=== PATIENT | male | born 1930 | race Two or more races ===

== ENCOUNTER → 2017-07-11 | Outpatient (CLI) | payer MEDICARE ==
[~2017-07-11] MED LIST: CATHETER FLUSH 10 ML SYR IV PRN; HYDR1TAB PO; IOHEXOL 350 MG/ML 100 ML (OMNIPAQUE 350) VIAL IV ONE; NS 100 ML (IVPB) BAG IV ONE
--- NOTE | 2017-07-11 14:48 | Diagnostic Imaging Report ---
PROCEDURE: CT abdomen and pelvis with and without contrast. TECHNIQUE: Precontrast acquisitions were acquired through the abdomen and pelvis. Multiple contiguous axial images were obtained through the abdomen and pelvis after the administration of intravenous contrast. INDICATION: Left flank pain. There are no prior studies available for comparison. 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 The aneurysm originates just inferior to the renal arteries and extends to the bifurcation. The aneurysm measures approximately 6.0 x 6.4 cm in maximum transverse and AP diameters. Nearly two-third of the aneurysm lumen is occupied by thrombus. There is no periaortic fluid collection to suggest an acute abnormality. There are few gallstones within the gallbladder, but there is no evidence for acute cholecystitis. The liver, spleen, pancreas, adrenals, kidneys and inferior vena cava are unremarkable for an acute abnormality. There is a 1.7 cm benign-appearing cyst along the lateral aspect of the left kidney. The stomach is not well distended and difficult to assess. There is no pelvic mass or free fluid collection noted. The urinary bladder and prostate gland are grossly unremarkable. The appendix is visualized and is not abnormally thickened. The bone windows show no sign of a fracture or of a destructive lesion. The lung bases are clear. IMPRESSION: 1. 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 The aneurysm measures 6.0 x 6.4 cm in size. There is no acute abnormality of the aorta. 2. There is no acute abnormality of the abdomen or pelvis noted. 3. There is cholelithiasis without evidence for acute cholecystitis. 4. These results were called to Dr. Pyle. Dictated by: Dictated on workstation # [id number]
== END ==
LOC: RAD 12:07
PROVIDERS: ATTEND Family Medicine
DX: I71.4 Abdominal aortic aneurysm, without rupture (principal); K80.20 Calculus of gallbladder without cholecystitis without obstruction; R31.9 Hematuria, unspecified
CPT/HCPCS: 74178

== ENCOUNTER → 2017-08-15 | Outpatient (CLI) | payer MEDICARE ==
[~2017-08-15] MED LIST changes: -CATHETER FLUSH 10 ML SYR IV PRN; -IOHEXOL 350 MG/ML 100 ML (OMNIPAQUE 350) VIAL IV ONE; -NS 100 ML (IVPB) BAG IV ONE
[2017-08-15 08:12] LABS: ALBUMIN 3.7 GM/DL (3.2-4.5); CALCIUM 9.1 MG/DL (8.5-10.1); CREATININE SERUM 1.67 MG/DL (0.60-1.30); PHOSPHORUS 3.4 MG/DL (2.3-4.7); POTASSIUM 4.4 MMOL/L (3.6-5.0)
== END ==
LOC: RAD 07:39
PROVIDERS: ATTEND Nurse Practitioner
DX: Z53.9 Procedure and treatment not carried out, unspecified reason (principal); I10 Essential (primary) hypertension; F17.210 Nicotine dependence, cigarettes, uncomplicated; Z98.890 Other specified postprocedural states
CPT/HCPCS: 36415; 80069

== ENCOUNTER → 2017-08-17 | Outpatient (CLI) | payer MEDICARE ==
--- NOTE | 2017-08-17 13:19 | Diagnostic Imaging Report ---
PROCEDURE: CT abdomen and pelvis without contrast. TECHNIQUE: Multiple contiguous axial images were obtained through the abdomen and pelvis without the use of intravenous contrast. INDICATION: Followup aneurysm repair. COMPARISON: 07/11/2017 FINDINGS: Included portions of the lung bases are unremarkable. CT ABDOMEN: Since the previous exam, patient is now status post aortobiiliac stent graft repair. Evaluation for potential endoleak is suboptimal given lack of IV contrast, but the proximal and distal ends appear well opposed to the [place] vessels on this noncontrast exam. Aneurysm sac measures approximately 5.7 x 6.3 cm in maximal axial dimension. This is stable compared to 6.3 x 5.8 cm previously. There is cholelithiasis. Hypodense left renal cyst is noted. Otherwise, the kidneys, adrenal glands, spleen, pancreas, and liver have an unremarkable noncontrast CT appearance. Small bowel loops are nondistended. Normal appendix is identified. There is no loculated fluid collection, free fluid, nor free air within the abdomen. No abnormal mesenteric or retroperitoneal adenopathy is seen. Bony structures show no acute abnormalities. CT PELVIS: Urinary bladder is unopacified. No calculi are seen within the urinary bladder. There is no loculated fluid collection, free fluid, or free air within the pelvis. No abnormal lymph nodes are identified. Bony structures show no acute abnormalities. IMPRESSION: 1. Postsurgical changes of interval aortobiiliac stent graft repair. Again, evaluation for endoleak is suboptimal given noncontrast nature of the exam, but aneurysmal sac is stable in size. 2. Cholelithiasis. Dictated by: Dictated on workstation # [id number]
== END ==
LOC: RAD 11:31
PROVIDERS: ATTEND Thoracic Surgery (Cardiothoracic Vascular Surgery)
DX: Z09 Encounter for follow-up examination after completed treatment for conditions other than malignant neoplasm (principal); K80.20 Calculus of gallbladder without cholecystitis without obstruction; Z95.818 Presence of other cardiac implants and grafts; Z86.79 Personal history of other diseases of the circulatory system
CPT/HCPCS: 74176

== ENCOUNTER 2017-09-29 09:05 | Day surgery (SDC) | payer MEDICARE ==
[~2017-09-29] VITALS: Ht 170.2 cm; Wt 63.2 kg
[2017-09-29 09:30] VITALS: BP 158/89
[2017-09-29] MEDS ORDERED: CATHETER FLUSH 10 ML SYR IV PRN (09:45)
[2017-09-29] MEDS ORDERED: POTA10TA10 PO (09:49)
[2017-09-29] MEDS ORDERED: METO-387 PO (09:49)
[2017-09-29] MEDS ORDERED: ASPI-983 PO (09:49)
[2017-09-29] MEDS ORDERED: FURO20TA4 PO (09:49)
[2017-09-29 10:18] LABS: HEMOGLOBIN 9.6 G/DL (13.3-17.7); MEAN PLATELET VOLUME 9.9 FL (7.4-10.4); RED BLOOD COUNT 3.17 10^6/uL (4.35-5.85); RED CELL DISTRIBUTION WIDTH 14.5 % (10.0-14.5); WHITE BLOOD COUNT 7.5 10^3/uL (4.3-11.0)
--- NOTE | 2017-09-29 10:27 | Diagnostic Imaging Report ---
INDICATION: CHF. TIME OF EXAMINATION: 10:37 a.m. COMPARISON: Correlation is made with prior study from 09/26/2017. FINDINGS: The heart size is stable. There are bilateral interstitial infiltrates, similar to prior exam. No parenchymal consolidation is seen. There is trace pleural fluid. No pneumothorax is seen. IMPRESSION: Continued bilateral interstitial infiltrates and small effusions, similar to examination from three days earlier. Dictated by: Dictated on workstation # [id number]
[2017-09-29] MEDS ORDERED: FUROSEMIDE 40 MG/4 ML INJ (LASIX) IVP NR (10:30)
[2017-09-29 10:42] LABS: CREATININE SERUM 2.06 MG/DL (0.60-1.30); POTASSIUM 4.2 MMOL/L (3.6-5.0)
[2017-09-29 10:44] LABS: INR 1.1 (0.8-1.4); PROTHROMBIN TIME PATIENT 14.2 SEC (12.2-14.7)
[2017-09-29 11:13] VITALS: BP 146/83
[2017-09-29] MEDS: CATHETER FLUSH 10 ML SYR IV SCH ×2 (11:37→20:28)
--- NOTE | 2017-09-29 13:39 | Consultation-Cardiology ---
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 Barakat done in July 2017. Patient has been having increasing shortness of breath. Fatigue, dyspnea on exertion which has been worsening to the point that he is short of breath with minimal exertion. Referred to me to be seen earlier this week, I do the stress test which was abnormal. Patient was started on Lasix as an outpatient, has underlying renal insufficiency which appeared to be deteriorating. We instructed him to come to the hospital for admission. Upper my valuation was still dyspneic on exertion. No chest pain. No palpitation Home Medications & Allergies Allergies: Coded Allergies: NKANo Known Allergies (Unverified Allergy, Mild, 07/19/09) Home Medication List Reviewed: Yes [id number] Hx Patient Social History Marital Status: Employed/Student: retired Past Medical History Past medical history as discussed Family Medical History Family Medical Hx Noncontributory to his current condition Constitutional: see HPI, malaise, weakness EENTM: see HPI Respiratory: see HPI, cough, dyspnea on exertion; No hemoptysis; orthopnea; No phlegm; short of breath; No stridor, No wheezing, No other Cardiovascular: see HPI, edema Gastrointestinal: no symptoms reported, see HPI Genitourinary: no symptoms reported, see HPI Musculoskeletal: no symptoms reported, see HPI Skin: no symptoms reported, see HPI Psychiatric/Neurological: No Symptoms Reported, See HPI Reviewed Test Results Reviewed Test Results Lab Laboratory Tests Test 09/29/17 10:09 Range/Units White Blood Count 7.5 4.3-11.0 10^3/uL Red Blood Count 3.17 L 4.35-5.85 10^6/uL Hemoglobin 9.6 L 13.3-17.7 G/DL Hematocrit 29 L 40-54 % Mean Corpuscular Volume 93 80-99 FL Mean Corpuscular Hemoglobin 30 25-34 PG Mean Corpuscular Hemoglobin Concent 33 32-36 G/DL Red Cell Distribution Width 14.5 10.0-14.5 % Platelet Count 293 130-400 10^3/uL Mean Platelet Volume 9.9 7.4-10.4 FL Prothrombin Time 14.2 12.2-14.7 SEC INR Comment 1.1 0.8-1.4 Activated Partial Thromboplast Time 34 24-35 SEC Sodium Level 138 135-145 MMOL/L Potassium Level 4.2 3.6-5.0 MMOL/L Chloride Level 105 98-107 MMOL/L Carbon Dioxide Level 26 21-32 MMOL/L Anion Gap 7 5-14 MMOL/L Blood Urea Nitrogen 35 H 7-18 MG/DL Creatinine 2.06 H 0.60-1.30 MG/DL Estimat Glomerular Filtration Rate 31 BUN/Creatinine Ratio 17 Glucose Level 122 H 70-105 MG/DL Calcium Level 9.0 8.5-10.1 MG/DL B-Type Natriuretic Peptide 2755.5 H <100.0 PG/ML Physical Exam Vital Signs Vital Signs - First Documented 09/29/17 09:30 Temp 98.9 Pulse 82 Resp 20 B/P (MAP) 158/89 (112) Pulse Ox 97 O2 Delivery Room Air Capillary Refill : General Appearance: WD/WN, Mild Distress Eyes: Bilateral Eye Normal Inspection, Bilateral Eye PERRL, Bilateral Eye EOMI HEENT: PERRL/EOMI, TMs Normal, Normal ENT Inspection, Pharynx Normal Neck: Full Range of Motion, Normal Inspection, Non Tender, Supple, Carotid Bruit Respiratory: Normal Breath Sounds, No Accessory Muscle Use, No Respiratory Distress, Crackles, Decreased Breath Sounds Cardiovascular: Regular Rate, Rhythm, No Edema, No JVD, Normal Peripheral Pulses, Gallop/S3 Gastrointestinal: Normal Bowel Sounds, No Organomegaly, No Pulsatile Mass, Non Tender, Soft Back: Normal Inspection, No CVA Tenderness, No Vertebral Tenderness Extremity: Normal Capillary Refill, Normal Inspection, Normal Range of Motion, Non Tender, No Calf Tenderness, Pedal Edema Neurologic/Psychiatric: Alert, Oriented x3, No Motor/Sensory Deficits, Normal Mood/Affect Skin: Normal Color, Warm/Dry Lymphatic: No Adenopathy A/P-Cardiology Admission Diagnosis Congestive heart failure Coronary artery disease Abdominal aortic aneurysm Hypertension Hyperlipidemia Assessment/Plan Congestive heart failure, acute onset. Unknown etiology, probably ischemic, abnormal stress test with fixed defect involving the anterior wall apex and inferior wall, severe diffuse left ventricular hypokinesia. Patient is admitted and started on diuretics. I will monitor his response. Evaluate echocardiogram Questionable coronary artery disease, possible progression after his vascular surgery. Abnormal stress test as described above. Possible viability study Acute on chronic renal insufficiency, monitor renal function while on diuretics. Abdominal aortic aneurysm status post surgical repair with EVAR. Hyperlipidemia, lipid profile was done in September 27, 2017 showing total cholesterol 204, triglyceride 86, HDL 44, LDL 153. Tobaccoism, patient has stopped smoking after surgery in August 2017 MARTHA RICH MD Sep 29, 2017 13:39
[2017-09-29 14:22] LABS: BILIRUBIN,URINE NEGATIVE (NEGATIVE); CLARITY,URINE CLEAR; COLOR,URINE YELLOW; GLUCOSE, URINE (UA) NEGATIVE (NEGATIVE); KETONES,URINE NEGATIVE (NEGATIVE); LEUKOCYTE ESTERASE ,URINE NEGATIVE (NEGATIVE); NITRITE,URINE NEGATIVE (NEGATIVE); PH,URINE 7 (5-9); PROTEIN,URINE NEGATIVE (NEGATIVE); UROBILINOGEN,URINE NORMAL (NORMAL)
[2017-09-29 14:31] LABS: BACTERIA,URINE NEGATIVE /HPF; WBC,URINE 0-2 /HPF
[2017-09-29] MEDS: ENOXAPARIN 30 MG/0.3 ML (LOVENOX) SYR SC SCH (15:05)
[2017-09-29 16:12] VITALS: BP 133/80
[2017-09-29] MEDS ORDERED: FUROSEMIDE 40 MG/4 ML INJ (LASIX) IVP SCH (17:00)
[2017-09-29] MEDS ORDERED: PATIENT MAY USE OWN MEDS, ALL MC SCH (17:45)
--- NOTE | 2017-09-29 18:44 | History & Physicial ---
History of Present Illness History of Present Illness Reason for visit/HPI Shortness of breath getting worse. Patient came to my office complaining of shortness of breath. Patient states he has trouble walking. Patient had surgery for sciatica and aortic abdominal aneurysm greater than 6 cm. This was done by Dr. rosanna Medley July 08 patient had abnormal lab tests. Patient sent to management accountant. Patient failure to outpatient treatment. Patient admitted Date of Admission Sep 29, 2017 at 09:05 Time Seen by Provider: 12:50 I consulted on this patient on 09/29/17 18:39 Attending Physician Yusuf Huff DO Admitting Physician Yusuf Huff DO Consult Allergies and Home Medications Allergies Coded Allergies: NKANo Known Allergies (Unverified Allergy, Mild, 07/19/09) Home Medications Aspirin 81 Mg Tablet.dr, 81 MG PO DAILY, (Reported) Furosemide 20 Mg Tablet, 20 MG PO DAILY, (Reported) Metoprolol Succinate 25 Mg Tab.er.24h, 25 MG PO DAILY, (Reported) Potassium Chloride 10 Meq Tablet.er, 10 MEQ PO DAILY, (Reported) Patient Home Medication List Home Medication List Reviewed: Yes Past [id number] Hx Patient Social History Marrital Status: Employed/Student: retired Surgeries Abdominal Constitutional: malaise, weakness EENTM: no symptoms reported Respiratory: dyspnea on exertion, short of breath Cardiovascular: no symptoms reported Gastrointestinal: no symptoms reported Genitourinary: no symptoms reported Physical Exam Vital Signs Vital Signs - First Documented 09/29/17 09/29/17 09:27 09:30 Temp 98.9 Pulse 80 Resp 20 B/P (MAP) 158/89 (112) Pulse Ox 97 O2 Delivery Room Air Capillary Refill : General Appearance: Thin Eyes: Bilateral Eye Normal Inspection HEENT: Normal ENT Inspection Neck: Full Range of Motion, Normal Inspection Respiratory: No Accessory Muscle Use, No Respiratory Distress, Decreased Breath Sounds, Other (Rales) Cardiovascular: Regular Rate, Rhythm, No Murmur Gastrointestinal: Non Tender, Soft Assessment/Plan Assessment and Plan Short of breath. Congestive heart failure. Low ejection fraction. Hypertension. Hyperlipidemia. Coronary artery disease. History of abdominal aortic aneurysm in July 26 Admission Diagnosis Admission Status: Inpatient Order (span 2 midnights) Reason for Inpatient Admission: Short of breath Patient treatment failure. Ejection fraction low. Congestive heart failure. History of tobaccoism has stopped recently YUSUF HUFF DO Sep 29, 2017 18:44
[2017-09-29] MEDS: SACUBITRIL/VALSARTAN 24/26 MG (ENTRESTO) TABLET PO SCH (20:28)
[2017-09-29 20:30] VITALS: BP 117/66
[2017-09-29 23:53] VITALS: BP 131/73
[2017-09-30] VITALS (10 sets, daily range): BP systolic 91–133; BP diastolic 68–85
[2017-09-30 03:39] LABS: HEMOGLOBIN 10.6 G/DL (13.3-17.7); RED BLOOD COUNT 3.47 10^6/uL (4.35-5.85); RED CELL DISTRIBUTION WIDTH 14.3 % (10.0-14.5); WHITE BLOOD COUNT 8.3 10^3/uL (4.3-11.0)
[2017-09-30 04:21] LABS: ALBUMIN 3.1 GM/DL (3.2-4.5); BILIRUBIN,TOTAL 0.8 MG/DL (0.1-1.0); CALCIUM 8.6 MG/DL (8.5-10.1); CREATININE SERUM 2.39 MG/DL (0.60-1.30); POTASSIUM 3.7 MMOL/L (3.6-5.0); TOTAL PROTEIN 7.3 GM/DL (6.4-8.2)
[2017-09-30] MEDS: CATHETER FLUSH 10 ML SYR IV SCH ×2 (05:25→13:41)
[2017-09-30] MEDS ORDERED: NS IV 1000 ML 4,000 ML ONE (06:49)
[2017-09-30] MEDS ORDERED: NS IV 1000 ML 1,000 ML ONE (06:49)
--- NOTE | 2017-09-30 06:50 | Cardiac Procedure Note-CS/ASA ---
Pre-Procedure Note Pre-Op Procedure Note H&P Reviewed The H&P was reviewed, patient examined and no changes noted. Date H&P Reviewed: Sep 30, 2017 Time H&P Reviewed: 06:50 Conscious Sedation Pre-Proced Time Reviewed: 06:50 ASA Class: 3 Airway Mallampati Classification: (pala appropriate class) I. II. III, IV Lungs Heart ASA score ASA 1: a normal healthy patient ASA 2: a patient with a mild systemic disease (mid diabetes, controlled hypertension, obesity x ASA 3: a patient with a severe systemic disease that limits activity (angina , COPD, prior Myocardial infarction) ASA 4: a patient with an incapacitating disease that is a constant threat to life (CHF, renal failure) ASA 5: a moribund patient not expected to survive 24 hrs. (ruptured aneurysm) ASA 6: a declared brain patient whose organs are being harvested. For emergent operations, add the letter E after the classification Grade 3 Sedation Plan: Analgesia, Amnesia, Plan communicated to team members, Discussed options with patient/fam, Discussed risks with patient/fam Note The patient is an appropriate candidate to undergo the planned procedure, sedation, and anesthesia. The patient immediately re-assessed prior to indication. MARTHA RICH MD Sep 30, 2017 06:50
--- NOTE | 2017-09-30 06:50 | Cardiology Progress Note ---
Subjective Date Seen by Provider: Sep 30, 2017 Time Seen by Provider: 06:48 Subjective/Events-last exam Patient is laying down in bed, feeling better, breathing better, denied any chest pain at this time. Review of Systems General: No Chills, No Night Sweats; Fatigue, Malaise; No Appetite, No Other HEENT: No Head Aches, No Visual Changes, No Eye Pain, No Ear Pain, No Dysphasia , No Sinus Congestion, No Post Nasal Drip, No Sore Throat, No Other Pulmonary: Dyspnea; No Cough, No Pleuritic Chest Pain, No Other Cardiovascular: No: Chest Pain, Palpitations, Orthopnea, Paroxysmal Noc. Dyspnea, Edema, Lt Headedness, Other Objective-Cardiology Exam Last Set of Vital Signs Vital Signs 09/30/17 09/30/17 03:47 04:00 Temp 97.2 Pulse 78 Resp 18 B/P (MAP) 133/75 (94) Pulse Ox 91 O2 Delivery Room Air Capillary Refill : I&O Intake and Output 09/30/17 00:00 Intake Total 1000 ml Output Total 2700 ml Balance -1700 ml Intake Oral 1000 ml Output Urine Total 2700 ml Daily Weight Change No General: Alert, Oriented X3, Cooperative, Mild Distress HEENT: Atraumatic, PERRLA Neck: Supple, No JVD, No Thyromegaly Lungs: Normal Air Movement, Other (Bilateral rhonchi) Heart: Regular Rate, Normal S1, Normal S2, No Murmurs, Gallops Abdomen: Normal Bowel Sounds, Soft, No Tenderness, No Hepatosplenomegaly, No Masses Extremities: No Clubbing, No Cyanosis, No Edema, Normal Pulses, No Tenderness/ Swelling Skin: No Rashes, No Breakdown, No Significant Lesion Neuro: Normal Gait, Normal Speech, Strength at 5/5 X4 Ext, Normal Tone, Sensation Intact Psych/Mental Status: Mental Status NL, Mood NL Results Lab Laboratory Tests 09/29/17 10:09 09/30/17 03:20 A/P-Cardiology Admission Diagnosis Congestive heart failure Coronary artery disease Abdominal aortic aneurysm Hypertension Hyperlipidemia Assessment/Plan Congestive heart failure, acute onset. Unknown etiology, probably ischemic, abnormal stress test with fixed defect involving the anterior wall apex and inferior wall, severe diffuse left ventricular hypokinesia. Had elevation of troponin, probably due to underlying coronary artery disease. Planning for left heart catheterization today. Coronary artery disease, abnormal stress test, discussed his underlying renal insufficiency and the recent surgery, patient is considered at high risk for complication, all pros and cons were explained, I offered going to [place] having the procedure done in [place], presents for selected which he Acute on chronic renal insufficiency, worsening while on diuretics. Continue to monitor closely Abdominal aortic aneurysm status post surgical repair with EVAR. Hyperlipidemia, lipid profile was done in September 27, 2017 showing total cholesterol 204, triglyceride 86, HDL 44, LDL 153. Tobaccoism, patient has stopped smoking after surgery in August 2017 Clinical Quality Measures DVT/VTE Risk/Contraindication: Risk Factor Score Per Nursin RFS Level Per Nursing on Admit: 4+=Very High MARTHA RICH MD Sep 30, 2017 06:50
[2017-09-30] MEDS ORDERED: MIDAZOLAM 5 MG/5 ML (VERSED) VIAL ONE (06:53)
[2017-09-30] MEDS ORDERED: LIDOCAINE 1% INJ 20 ML 20 ML VIAL ONE (06:53)
[2017-09-30] MEDS ORDERED: fentaNYL INJECTION 100 MCG/2 ML AMP ONE (06:53)
[2017-09-30] MEDS ORDERED: HEParin 1000 UNIT/ML (10ML VIAL) FOR BOLUS ONE (06:53)
[2017-09-30] MEDS ORDERED: NS IV 1000 ML 1,000 ML IV SCH (07:00)
--- NOTE | 2017-09-30 07:48 | Progress Note (SOAP) ---
Subjective Time Seen by Provider: 07:45 Subjective/Events-last exam Patient's troponin elevated. BNP elevated. GFR 27. Patient catheter lab Objective Exam Vital Signs Date Time Temp Pulse Resp B/P (MAP) Pulse Ox O2 Delivery O2 Flow Rate FiO2 09/30/17 04:00 Room Air 09/30/17 03:47 97.2 78 18 133/75 (94) 91 Room Air 09/30/17 01:00 79 09/30/17 00:00 Room Air 09/29/17 23:53 97.3 76 18 131/73 (92) 92 Room Air 09/29/17 20:30 Room Air 09/29/17 20:30 97.8 83 20 117/66 (83) 95 Room Air 09/29/17 20:30 Room Air 09/29/17 19:00 78 09/29/17 16:12 99.1 78 20 133/80 (97) 93 Room Air 09/29/17 16:12 Room Air 09/29/17 13:00 81 09/29/17 11:13 98.5 76 16 146/83 (104) 93 Room Air 09/29/17 11:13 Room Air 09/29/17 09:30 98.9 82 20 158/89 (112) 97 Room Air 09/29/17 09:27 80 09/29/17 09:05 Room Air I & O 09/30/17 07:00 Intake Total 1000 ml Output Total 3700 ml Balance -2700 ml Capillary Refill : General Appearance: No Apparent Distress Results Lab Laboratory Tests 09/29/17 10:09 09/30/17 03:20 Laboratory Tests 09/29/17 10:09: White Blood Count 7.5, Red Blood Count 3.17L, Hemoglobin 9.6L, Hematocrit 29L, Mean Corpuscular Volume 93, Mean Corpuscular Hemoglobin 30, Mean Corpuscular Hemoglobin Concent 33, Red Cell Distribution Width 14.5, Platelet Count 293, Mean Platelet Volume 9.9, Prothrombin Time 14.2, INR Comment 1.1, Activated Partial Thromboplast Time 34, Sodium Level 138, Potassium Level 4.2, Chloride Level 105, Carbon Dioxide Level 26, Anion Gap 7, Blood Urea Nitrogen 35H, Creatinine 2.06H, Estimat Glomerular Filtration Rate 31, BUN/Creatinine Ratio 17 , Glucose Level 122H, Calcium Level 9.0, B-Type Natriuretic Peptide 2755.5H 09/29/17 14:15: Urine Color YELLOW, Urine Clarity CLEAR, Urine pH 7, Urine Specific [place] 1.010L, Urine Protein NEGATIVE, Urine Glucose (UA) NEGATIVE, Urine Ketones NEGATIVE, Urine Nitrite NEGATIVE, Urine Bilirubin NEGATIVE, Urine Urobilinogen NORMAL, Urine Leukocyte Esterase NEGATIVE, Urine RBC (Auto) NEGATIVE, Urine RBC NONE, Urine WBC 0-2, Urine Crystals NONE, Urine Bacteria NEGATIVE, Urine Casts NONE, Urine Mucus NEGATIVE, Urine Culture Indicated NO 09/30/17 03:20: White Blood Count 8.3, Red Blood Count 3.47L, Hemoglobin 10.6L, Hematocrit 32L, Mean Corpuscular Volume 91, Mean Corpuscular Hemoglobin 31, Mean Corpuscular Hemoglobin Concent 33, Red Cell Distribution Width 14.3, Platelet Count 280, Mean Platelet Volume 10.0, Sodium Level 138, Potassium Level 3.7, Chloride Level 100, Carbon Dioxide Level 24, Anion Gap 14, Blood Urea Nitrogen 49H, Creatinine 2.39H, Estimat Glomerular Filtration Rate 26, BUN/Creatinine Ratio 21 , Glucose Level 115H, Calcium Level 8.6, B-Type Natriuretic Peptide 3217.5H, Total Bilirubin 0.8, Aspartate Amino Transf (AST/SGOT) 14, Alanine Aminotransferase (ALT/SGPT) 9, Alkaline Phosphatase 72, Troponin I 1.27*H, Total Protein 7.3, Albumin 3.1L Assessment/Plan Assessment/Plan Assess & Plan/Chief Complaint Elevated troponin. Elevated BNP. 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 Congestive heart failure. Low ejection fraction. Hypertension. Hyperlipidemia. Coronary artery disease. History of abdominal aortic aneurysm in July 26 DVT/VTE Risk/Contraindication: Risk Factor Score Per Nursin RFS Level Per Nursing on Admit: 4+=Very High YUE HUFF DO Sep 30, 2017 7:48 am
[2017-09-30] MEDS ORDERED: SACU1TAB PO (07:50)
[2017-09-30] MEDS ORDERED: ATOR10TA PO (07:52)
--- NOTE | 2017-09-30 07:53 | Discharge Inst-Post CATH ---
Discharge Inst-CATH Post Cardiac Cath D/C Inst CARDIAC CATH DISCHARGE INSTRUCTIONS *Hold Metformin for 48 hours post heart cath. ACTIVITY * Go Home directly and rest. * Limit activity of the leg (or wrist if it was used) for 7 days including aerobics, swimming, jogging, bicycling, etc. * Restrict stair-climbing for 7 days if possible, if not, climb up with your non -cath leg, then bring together on the same step. * Avoid lifting, pushing, pulling or excessive movement of the affected extremity for 7 days. * Customary sexual activity may be resumed after 2 days-use caution not to use a position that strains or causes pain to the affected extremity. * No driving for 24 hours. * NO SMOKING. * Avoid straining for bowel movements for 7 days. * Gentle walking on level ground is allowed. * Returning to work will depend on the type of procedure and the results. Your doctor will discuss this with you. CALL YOUR DOCTOR FOR ANY OF THE FOLLOWING: *If bleeding from the puncture site occurs- Apply gentle pressure to site with clean cloth and call your doctor or EMS. * If a knot or lump forms under the skin, increases in size, or causes pain. * If bruising appears to be worsening or moving further down your leg instead of disappearing. * Temperature above 101 F. CARE OF YOUR GROIN INCISION; * Bruising or purple discoloration of the skin near the puncture site is common. * You may shower only, no bathtub bathing for 5 days. Be careful to avoid slipping as your leg may feel stiff. * If a closure device was used on your femoral artery, please see the attached guide regarding care of the device and your leg. * REMOVE the dressing from your groin the next day after your procedure in the shower. CARE OF YOUR WRIST INCISION; * Bruising or purple discoloration of the skin near the puncture site is common. * You may shower. * DO NOT submerge wrist. * Remove dressing in 24 hours. MARTHA RICH MD Sep 30, 2017 07:52
--- NOTE | 2017-09-30 08:00 | Cardiac Cath Report ---
Cardiac Cath Report Physician (s)/Lehr Stripper (s) Physician MARTHA RICH MD Pre-Procedure Diagnosis Pre-Procedure Diagnosis: coronary artery disease Post-Procedure Note Procedure Start Date: Sep 30, 2017 Name of Procedure: Coronary angiogram Findings/Procedure Note PROCEDURE NOTE: After explaining the procedure to the patient, all pros and cons were explained , all questions were answered. The patient signed the consent and then he was placed on the cardiac catheterization laboratory. Groin was prepped SL fashion local anesthesia was used. Sheath placed in the right femoral artery. Ap right and left catheter were used to access the coronary system, exchange was done using a long stork wire At the end of the procedure the sheath was removed. Closure device FINDINGS: ANATOMY: Left Main is free of obstructive disease Left Anterior Descending has severe stenosis/subtotal occlusion at the proximal portion involving the ostium of the diagonal artery Left Circumflex is dominant with mild disease Right Coronory Artery is nondominant with mild disease CONCLUSION: 1. Severe proximal LAD stenosis/subtotal occlusion involving the ostium of the diagonal branch 2. Otherwise mild coronary artery disease DISCUSSION AND RECOMMENDATION: Patient has underlying renal insufficiency, will need nephrology evaluation, it is considered high risk intervention. I am planning to transfer him to a tertiary care center for high risk intervention Anesthesia Type: Conscious Sedation Estimated blood loss (mL): 10 ml Contrast Amount: 16 ml Total Radiation Dose: 218 mGy Post-Procedure Diagnosis Post-operative diagnosis: Coronary artery disease Congestive heart failure Abdominal aortic aneurysm Hypertension Hyperlipidemia MARTHA RICH MD Sep 30, 2017 8:00 am
[2017-09-30] MEDS ORDERED: ASPIRIN E.C. 81 MG (ECOTRIN) TAB PO SCH ×2 (09:00)
[2017-09-30] MEDS ORDERED: FUROSEMIDE 40 MG/4 ML INJ (LASIX) IVP SCH (09:00)
[2017-09-30] MEDS: SACUBITRIL/VALSARTAN 24/26 MG (ENTRESTO) TABLET PO SCH (10:22)
--- NOTE | 2017-09-30 12:49 | Cardiology Discharge Summary ---
Diagnosis/Chief Complaint Date of Admission Sep 29, 2017 at 9:05 am Date of Discharge Admission Diagnosis Congestive heart failure Coronary artery disease Abdominal aortic aneurysm Hypertension Hyperlipidemia Discharge Diagnosis Congestive heart failure Coronary artery disease Hypertension Hyperlipidemia Abdominal aortic aneurysm Chief Complaint/HPI Chief Complaint/HPI Shortness of breath getting worse. Patient came to my office complaining of shortness of breath. Patient states he has trouble walking. Patient had surgery for sciatica and aortic abdominal aneurysm greater than 6 cm. This was done by Dr. rosanna Medley July 08 patient had abnormal lab tests. Patient sent to manual arts teacher. Patient failure to outpatient treatment. Patient admitted Discharge Summary Hospital Course Hospital Course Congestive heart failure, acute left ventricular systolic dysfunction, ischemic in nature. Better at this time on Lasix Coronary artery disease, abnormal stress test with fixed defect at the anterior wall, cardiac catheterization showed subtotal occlusion at the proximal LAD involving the ostium of the diagonal artery, still have flow in the LAD. Consider high risk for intervention without backup surgery. Arrangement for transfer to a tertiary care center was made. Acute on chronic renal insufficiency, worsening while on diuretics. Very limited amount of contrast was used today total of 16 milliliter. Continue to monitor renal function patient will be seen by dietician Abdominal aortic aneurysm status post surgical repair with EVAR. Hyperlipidemia, lipid profile was done in September 27, 2017 showing total cholesterol 204, triglyceride 86, HDL 44, LDL 153. Tobaccoism, patient has stopped smoking after surgery in August 2017 Labs Laboratory Tests 09/29/17 10:09: Red Blood Count 3.17L, Hemoglobin 9.6L, Hematocrit 29L, Blood Urea Nitrogen 35H , Creatinine 2.06H, Glucose Level 122H, B-Type Natriuretic Peptide 2755.5H 09/29/17 14:15: Urine Specific [place] 1.010L 09/30/17 03:20: Red Blood Count 3.47L, Hemoglobin 10.6L, Hematocrit 32L, Blood Urea Nitrogen 49H , Creatinine 2.39H, Glucose Level 115H, B-Type Natriuretic Peptide 3217.5H, Troponin I 1.27*H, Albumin 3.1L Procedures None. Discharge Physical Examination Allergies: Coded Allergies: NKANo Known Allergies (Unverified Allergy, Mild, 07/19/09) Vitals & I&Os Vital Signs Date Time Temp Pulse Resp B/P (MAP) Pulse Ox O2 Delivery O2 Flow Rate FiO2 09/30/17 10:00 80 16 116/77 (90) 98 Nasal Cannula 2.00 09/30/17 08:00 98.0 General Appearance: Alert, Oriented X3, Cooperative, No Acute Distress HEENT: Atraumatic, PERRLA Respiratory: Normal Air Movement, Other (Bilateral rhonchi) Cardiovascular: Regular Rate, Normal S1, Normal S2, No Murmurs Abdominal: Normal Bowel Sounds, Soft, No Tenderness, No Hepatosplenomegaly, No Masses Extremities: No Clubbing, No Cyanosis, No Edema, Normal Pulses, No Tenderness/ Swelling Skin: No Rashes, No Breakdown, No Significant Lesion Neuro: Normal Gait, Normal Speech, Strength at 5/5 X4 Ext, Normal Tone, Sensation Intact, Cranial Nerves 3-12 NL, Reflexes 2+ Psych/Mental Status: Mental Status NL, Mood NL Discharge Home Medications Reviewed and agree with Discharge Medication list on patient's Discharge Instruction sheet Instructions to Patient/Family Please see electronic discharge instructions given to patient. Clinical Quality Measures DVT/VTE Risk/Contraindication: Risk Factor Score Per Nursin RFS Level Per Nursing on Admit: 4+=Very High MARTHA RICH MD Sep 30, 2017 12:49 pm
[2017-09-30] MEDS: ENOXAPARIN 30 MG/0.3 ML (LOVENOX) SYR SC SCH (13:40)
== END 2017-09-30 18:28 | disposition short-term general hospital (02) ==
LOC: ICU 09:05 → UNDOADMOB 09:05 → CATH 09:05 → ICU 12:26 → EDSTATUS 13:14 → CATH 09-30 18:28 → UNDODISOB 09-30 18:28
PROVIDERS: ATTEND Family Medicine
DX: I50.21 Acute systolic (congestive) heart failure (principal); I25.10 Atherosclerotic heart disease of native coronary artery without angina pectoris; I71.4 Abdominal aortic aneurysm, without rupture; I13.0 Hypertensive heart and chronic kidney disease with heart failure and stage 1 through stage 4 chronic kidney disease, or unspecified chronic kidney disease; E78.5 Hyperlipidemia, unspecified; N18.9 Chronic kidney disease, unspecified; Z87.891 Personal history of nicotine dependence; Z79.899 Other long term (current) drug therapy
CPT/HCPCS: 36415; 71046; 80048; 80053; 81000; 83880; 84484; 85027; 85610; 85730; 93005; 93306; 93454; 99211

== ENCOUNTER → 2017-11-08 | Outpatient (CLI) | payer MEDICARE ==
[~2017-11-08] MED LIST changes: +ASPI-983 PO; +ATOR10TA PO; +FURO20TA4 PO; +METO-387 PO; +POTA10TA10 PO; +SACU1TAB PO
== END ==
LOC: CARD 08:25
PROVIDERS: ATTEND Internal Medicine Cardiovascular Disease
DX: I10 Essential (primary) hypertension (principal); R06.02 Shortness of breath; R07.89 Other chest pain; I71.4 Abdominal aortic aneurysm, without rupture; I08.3 Combined rheumatic disorders of mitral, aortic and tricuspid valves
CPT/HCPCS: 93306

== ENCOUNTER → 2018-02-07 | Outpatient (CLI) | payer MEDICARE ==
--- NOTE | 2018-02-07 13:14 | Diagnostic Imaging Report ---
PROCEDURE: CT abdomen and pelvis without contrast. TECHNIQUE: Multiple contiguous axial images were obtained through the abdomen and pelvis without the use of intravenous contrast. INDICATION: History of abdominal aortic aneurysm repair, smoker with hypertension. COMPARISON: Study compared to 08/17/2017. FINDINGS: Owing to renal dysfunction, this study is performed without IV contrast, similar to the previous. Infrarenal fusiform abdominal aortic aneurysm extends a length of 9.8 cm today, previously 9.0 cm. In axial plane, the aneurysmal sac is increased in size today measuring 7.3 x 6.4 cm, previously 6.3 x 5.7 cm. If the patient cannot tolerate IV contrast, Doppler ultrasound evaluation recommended as endoleak in the setting of enlarging aneurysm sac should be suspected. No perianeurysmal hemorrhage, fluid collection, or inflammatory process. No evidence for vessel rupture. Graft itself projects in stable orientation extending into the bilateral iliacs with no pelvic aneurysm. No intra or extraperitoneal hemorrhage. There are gallstones present with no bile duct dilatation. The gallbladder wall however is thickened, correlate clinically for features of acute cholecystitis. We note the gallbladder does not appear convincingly changed from the prior. Spleen, adrenals, and pancreas are unremarkable. The unobstructed kidneys are nonacute with some renal cortical cysts on the left, stable. IMPRESSION: 1. Increasing size of abdominal aortic aneurysmal sac. Stable orientation of the stent graft device. No evidence for rupture or acute fluid collection. Endoleak cannot be excluded and if iodinated contrast media is not tolerable, correlation with Doppler indicated. 2. Cholelithiasis and thickening of the gallbladder wall, similar to prior without bile duct dilatation. Dictated by: Dictated on workstation # [id number]
== END ==
LOC: RAD 11:19
PROVIDERS: ATTEND Nurse Practitioner
DX: I71.4 Abdominal aortic aneurysm, without rupture (principal); K80.20 Calculus of gallbladder without cholecystitis without obstruction; I10 Essential (primary) hypertension; F17.210 Nicotine dependence, cigarettes, uncomplicated; Z95.828 Presence of other vascular implants and grafts
CPT/HCPCS: 74176

== ENCOUNTER → 2018-06-05 | Outpatient (CLI) | payer MEDICARE ==
--- NOTE | 2018-06-06 21:25 | Diagnostic Imaging Report ---
EXAM: PET/CT INDICATION: Elevated serum immunoglobulin free light chains. TECHNIQUE: PET/CT imaging was obtained from the base of the skull through the pelvis after the administration of 11.94 mCi of F-[address] imaging was utilized for localization and attenuation correction purposes. The low energy CT utilized for attenuation correction is not considered to be of high enough spatial resolution to allow in and of itself a separate anatomical analysis. The extremities were also evaluated. COMPARISON: There are no prior PET/CT examinations available for comparison. FINDINGS: The CT abdomen / pelvis exam of 02/07/2018 failed to show any sign of a mass lesion. On this study, however, there now appears to be a 1.8 x 1.9 cm hypermetabolic mass within the lumen of the proximal descending colon. This mass has an SUV of 28.9 and should be considered neoplastic until proven otherwise. There is no other hypermetabolic activity to suggest the presence of neoplasm. There is a small focus of slightly increased activity in the ascending colon. This has a maximum SUV of 2.5 is more likely to be related to physiologic activity than to a neoplastic mass. The images of the extremities do show asymmetric uptake in the soft tissues adjacent to the left femoral neck. The maximum SUV in this area is 3.2. There is also increased activity adjacent to each greater trochanter. The maximum SUV in these areas is approximately 1.6. I suspect that these changes are more likely related to muscular activity and/or inflammation than to neoplasm. The previously study did show an aortic aneurysm with a stent graft in place. The aneurysm measured 7.3 x 6.4 cm. On this study, the aneurysm now measures 6.9 x 6.3 cm. The cholelithiasis seen on the previous study is again evident. There is still no evidence for acute cholecystitis. The intracranial contents, where visualized, are unremarkable. There is no abnormal uptake in the lower extremities. IMPRESSION: 1. There is a hypermetabolic intraluminal mass within the proximal descending colon. This finding should be considered neoplastic until proven otherwise. 2. There is no other hypermetabolic activity to suggest the presence of neoplasm. Dictated by: Dictated on workstation # [id number]
== END ==
LOC: RAD 08:33
PROVIDERS: ATTEND Internal Medicine Hematology & Oncology
DX: K63.89 Other specified diseases of intestine (principal); R76.8 Other specified abnormal immunological findings in serum

== ENCOUNTER 2018-06-29 10:22 | Outpatient (RCR) | payer MEDICARE | END 2018-08-29 | disposition home or self-care (01) | LOC: ONC 10:22 | PROVIDERS: ATTEND Internal Medicine Hematology & Oncology | DX: I12.9 Hypertensive chronic kidney disease with stage 1 through stage 4 chronic kidney disease, or unspecified chronic kidney disease (principal); N18.9 Chronic kidney disease, unspecified; Z87.891 Personal history of nicotine dependence; I71.4 Abdominal aortic aneurysm, without rupture; I25.10 Atherosclerotic heart disease of native coronary artery without angina pectoris; D89.0 Polyclonal hypergammaglobulinemia; Z79.82 Long term (current) use of aspirin; Z79.899 Other long term (current) drug therapy; Z95.5 Presence of coronary angioplasty implant and graft | CPT/HCPCS: 99213; 99214 ==

== ENCOUNTER → 2019-02-09 | Outpatient (CLI) | payer MEDICARE | LOC: CARD 08:21 | PROVIDERS: ATTEND Internal Medicine Cardiovascular Disease | DX: I08.1 Rheumatic disorders of both mitral and tricuspid valves (principal); I50.9 Heart failure, unspecified; I25.10 Atherosclerotic heart disease of native coronary artery without angina pectoris | CPT/HCPCS: 93306 ==

== ENCOUNTER → 2020-01-15 | Outpatient (CLI) | payer MEDICARE ==
[~2020-01-15] MED LIST changes: -METO-387 PO; +MTP25TSR PO; -SACU1TAB PO; +SACU1TAB2 PO
--- NOTE | 2020-01-15 14:49 | Diagnostic Imaging Report ---
PROCEDURE: CT abdomen and pelvis without contrast. TECHNIQUE: Multiple contiguous axial images were obtained through the abdomen and pelvis without the use of intravenous contrast. Auto Exposure Controls were utilized during the CT exam to meet ALARA standards for radiation dose reduction. INDICATION: Abdominal aortic aneurysm and chronic kidney disease stage IV. Correlation is made with prior CT from 02/07/2018. The lung bases are clear. The liver is unremarkable. Gallbladder contains small stones. No biliary duct dilatation is seen. Pancreas and spleen are unremarkable. No adrenal mass is detected. No definite renal calculi or hydronephrosis is seen. Infrarenal abdominal aortic aneurysm containing a stent graft is again noted. The stent appears to be more focally angulated than on prior exam with slight kinking present. Aneurysm sac dimension is 5.8 cm AP compared with 6.47 cm on prior. No perianeurysmal fluid collection is identified to suggest leakage or rupture. Bowel loops are of normal caliber. There is no free fluid or fluid collection. Bladder is unremarkable. IMPRESSION: 1. Cholelithiasis. 2. Abdominal aortic aneurysm with aortic stent graft. Aneurysm sac dimensions appears stable. There is slight change in the orientation of the stent graft with more angulation and kinking when compared with prior study from 02/07/2018. Dictated by: Dictated on workstation # [id number]
== END ==
LOC: RAD 13:57
PROVIDERS: ATTEND Nurse Practitioner
DX: N18.4 Chronic kidney disease, stage 4 (severe) (principal); I71.4 Abdominal aortic aneurysm, without rupture; K80.20 Calculus of gallbladder without cholecystitis without obstruction; Z95.828 Presence of other vascular implants and grafts
CPT/HCPCS: 74176

== ENCOUNTER → 2020-01-21 | Outpatient (CLI) | payer MEDICARE ==
[~2020-01-21] VITALS: Ht 170 cm; Wt 72.0 kg
[~2020-01-21] MED LIST changes: +CATHETER FLUSH 10 ML SYR IV PRN; +REGADENOSON 0.4 MG/5 ML SYR (LEXISCAN) IV ONE
[2020-01-21 07:49] LABS: BILIRUBIN,TOTAL 0.4 MG/DL (0.1-1.0); CREATININE SERUM 3.19 MG/DL (0.60-1.30); POTASSIUM 4.4 MMOL/L (3.6-5.0); TOTAL PROTEIN 7.5 GM/DL (6.4-8.2)
[2020-01-21 09:15] VITALS: BP 132/73
--- NOTE | 2020-01-21 12:02 | Cardiology Stress Test Report ---
Stress Test Report Date of Procedure/Referring: Date of Procedure: Jan 21, 2020 PCP Martha Sanchez MD Admitting Physician Yusuf Pyle DO Indications: Coronary artery disease Baseline Heart Rate: 48 Baseline Blood Pressure: Blood Pressure Systolic: 132 Blood Pressure Diastolic: 73 Baseline Vitals Vital Signs Date Time Temp Pulse Resp B/P (MAP) Pulse Ox O2 Delivery O2 Flow Rate FiO2 01/21/20 09:15 47 18 132/73 (92) 99 Room Air Baseline EKG: Baseline EKG: sinus bradycardia Summary After explaining the procedure to the patient, he signed a consent and then brought to the stress nuclear laboratory. Patient received 0.4 mg Lexiscan for stress test, ECG, heart rate and blood pressure were monitored continuously. Resting and stress dose of radio tracer were injected, imaging was acquired and reviewed in short axis, horizontal long axis and vertical long axis views. TID: 1.02 SSS: 3 SDS: 1 EF: 52 1. Patient tolerated Lexiscan well 2. Diaphragmatic attenuation with mild decrease uptake at the inferoapical segment with subtle reversibility, no significant ischemia or infarction on SPECT images 3. Normal left ventricular size, mild hypokinesia of the inferior wall, EF 52 percent MARTHA SANCHEZ MD Jan 21, 2020 12:02
== END ==
LOC: CARD 07:11
PROVIDERS: ATTEND Internal Medicine Cardiovascular Disease
DX: I25.10 Atherosclerotic heart disease of native coronary artery without angina pectoris (principal); I11.0 Hypertensive heart disease with heart failure; I50.9 Heart failure, unspecified; E78.2 Mixed hyperlipidemia
CPT/HCPCS: 78452; 80053; 80061; 93017; A9502; 36415

== ENCOUNTER → 2020-01-22 | Outpatient (CLI) | payer MEDICARE ==
[~2020-01-22] MED LIST changes: -CATHETER FLUSH 10 ML SYR IV PRN; -REGADENOSON 0.4 MG/5 ML SYR (LEXISCAN) IV ONE
== END ==
LOC: CARD 10:20
PROVIDERS: ATTEND Internal Medicine Cardiovascular Disease
DX: I07.1 Rheumatic tricuspid insufficiency (principal); I50.9 Heart failure, unspecified; I25.10 Atherosclerotic heart disease of native coronary artery without angina pectoris
CPT/HCPCS: 93306

== ENCOUNTER 2020-03-30 12:58 | Emergency (ER) | payer MEDICARE ==
[~2020-03-30 12:58] MED LIST changes: +ASPI-1238 PO; -ASPI-983 PO
[2020-03-30] MEDS ORDERED: MIDAZOLAM 5 MG/5 ML (VERSED) VIAL IJ ONE (12:59)
[2020-03-30] MEDS ORDERED: ETOMIDATE IV SOLN 20 MG/10 ML VIAL IV ONE (12:59)
[2020-03-30] MEDS ORDERED: ROCURONIUM 10 MG/ML 5 ML SYRINGE IV ONE (12:59)
--- NOTE | 2020-03-30 13:05 | NUR ---
Warmed NS fluid bolus initiated.
--- NOTE | 2020-03-30 13:15 | NUR ---
Pt to CT accomapanied by ZANDRA Mcfarland RN et Dr. Scanlon.
[2020-03-30 13:19] LABS: BASOPHILS % (AUTO) 0 % (0-10); EOSINOPHILS % (AUTO) 0 % (0-10); HEMATOCRIT 22 % (40-54); HEMOGLOBIN 7.3 g/dL (13.3-17.7); LYMPHOCYTES # (AUTO) 1.6 10^3/uL (1.0-4.0); LYMPHOCYTES % (AUTO) 9 % (12-44); MEAN CORPUSCULAR HEMOGLOBIN 31 pg (25-34); MEAN CORPUSCULAR HGB CONC 33 g/dL (32-36); MEAN CORPUSCULAR VOLUME 95 fL (80-99); MEAN PLATELET VOLUME 11.2 fL (9.0-12.2); MONOCYTES # (AUTO) 1.5 10^3/uL (0.0-1.0); MONOCYTES % (AUTO) 9 % (0-12); NEUTROPHILS # (AUTO) 13.3 10^3/uL (1.8-7.8); NEUTROPHILS % (AUTO) 80 % (42-75); PLATELET COUNT 209 10^3/uL (130-400); WHITE BLOOD COUNT 16.8 10^3/uL (4.3-11.0)
--- NOTE | 2020-03-30 13:20 | NUR ---
NS bolus initiated by cc ems, precinct captain complete (1000ml intake).
[2020-03-30 13:30] LABS: ALBUMIN 3.5 GM/DL (3.2-4.5); POTASSIUM 5.2 MMOL/L (3.6-5.0)
[2020-03-30 13:31] LABS: CALCIUM 8.5 MG/DL (8.5-10.1)
[2020-03-30 13:32] LABS: TOTAL PROTEIN 6.6 GM/DL (6.4-8.2)
[2020-03-30 13:34] LABS: BILIRUBIN,TOTAL 0.4 MG/DL (0.1-1.0)
[2020-03-30 13:36] LABS: CREATININE SERUM 4.41 MG/DL (0.60-1.30)
[2020-03-30 13:40] LABS: NEUTROPHILS % (MANUAL) 82 %
[2020-03-30 13:41] LABS: ANISOCYTOSIS SLIGHT; CRENATED RBC SLIGHT; ELLIPT/OVALOCYTES SLIGHT; LYMPHOCYTES % (MANUAL) 15 %; MONOCYTES % (MANUAL) 3 %; POIKILOCYTOSIS SLIGHT
[2020-03-30] MEDS ORDERED: NOREPINEPHRINE 4 MG/250 ML 250 ML IV ONE (13:41)
[2020-03-30 13:49] LABS: CREATINE KINASE MB 9.3 NG/ML (<6.6)
[2020-03-30] MEDS ORDERED: MIDAZOLAM INJECTION FOR DRIPS 50 MG in NS (IVPB) 90 ML IV SCH (14:00)
--- NOTE | 2020-03-30 14:00 | NUR ---
1335 20mg etomidate 1336 50mg roccuronium 1338 Initiated massive blood transfusion. Unit #1 begins via rapid infuser. Pulse 116 99% via BVM BP 78/54 1340 Time of intubation, + color change, 7.5 ET tube, 25 @ lip, FIO2 100% TV 400 PEEP 5. 1341 Unit #1 rapid blood infusion complete. 1342 Unit #2 initiated via rapid infuser. 1346 16Fr. raymond catheter placed. 16Fr OG placed (low int. suction) 1346 Unit #2 rapid blood infusion complete. 1348 Norepinephrine drip initiated (0.1mcg/kg/hr 30ml/hr) 1353 2mg versed IV push 1354 FIO2 60%. 1355 Norepinephrine increased (0.13mcg/kg/hr) 1400 NS fluid bolus complete (2L total input) 1400 Unable to obtain SPO2 d/t decreased perfusion.
[2020-03-30 14:09] VITALS: BP 102/74
[2020-03-30 14:16] LABS: ABG BASE EXCESS -19.6 MMOL/L (-2.5-2.5); ABG OXYGEN SATURATION 99 % (94-100); ABG PCO2 20 MMHG (35-45); ABG PO2 262 MMHG (79-93); ABG TCO2 8.5 MMOL/L (21.0-31.0)
[2020-03-30 14:17] LABS: ALLENS TEST YES-POS; VENTILATOR YES
[2020-03-30 14:18] LABS: ABG PH 7.18 (7.37-7.43); PATIENT TEMP 33.3
--- NOTE | 2020-03-30 14:18 | ED General ---
General Stated Complaint: AAA Source of Information: Patient, EMS Exam Limitations: No Limitations History of Present Illness Date Seen by Provider: Mar 30, 2020 Time Seen by Provider: 13:00 Initial Comments Patient is an 89-year-old male who presents to the emergency department with a chief complaint of sudden onset abdominal pain and back pain. Patient states that he had pain that started suddenly. He speaks broken Persian. No skin installer is immediately available for assistance. EMS reports the patient had a pulsatile bounding abdomen and were suspicious for ruptured AAA. 2 IVs were immediately established, the patient was given a fluid bolus of 2 L of normal saline and taken immediately to CAT scan. While in CAT scan it was noted that the patient already had a stent in his abdominal aorta. Blood was obvious surrounding the stent. Patient was brought back to the emergency department where resuscitative measures were continued. The patient was intubated to protect his airway should his condition decline. He was RSI'd with etomidate and rocuronium. Patient was continued to be resuscitated with 2 units of uncrossed matched blood. Immediate efforts were made to obtain transport to a higher level of care. Over the course of the next 30 minutes to 1 hour an accepting hospital was obtained in [facility] [address] [facility] was immediately available for transport. Review of systems was not obtained secondary to the patient's extremis. Timing/Duration: 1-3 Hours Allergies and Home Medications Allergies Coded Allergies: FAIZAANo Known Allergies (Unverified Allergy, Mild, 07/19/09) Home Medications Aspirin 81 Mg Tablet.dr, 81 MG PO DAILY, (Reported) Atorvastatin Calcium 10 Mg Tablet, 10 MG PO DAILY Prescribed by: MARTHA RICH on 09/30/17 075 Furosemide 20 Mg Tablet, 20 MG PO DAILY, (Reported) Metoprolol Succinate 25 Mg Tab.er.24h, 25 MG PO DAILY, (Reported) Potassium Chloride 10 Meq Tablet.er, 10 MEQ PO DAILY, (Reported) Sacubitril/Valsartan 1 Each Tablet, 1 TAB PO BID Prescribed by: MARTHA RICH on 09/30/17 075 Patient Home Medication List Home Medication List Reviewed: Yes Review of Systems Review of Systems Constitutional: other (back pain) Gastrointestinal: abdominal pain Musculoskeletal: back pain Complete review of systems not obtained secondary to the patient's extremis All Other Systems Reviewed Negative Unless Noted: Yes Past Seelyhx-Fhihgz-Eafgwl Hx Patient Social History Type Used: Cigarettes Former Smoker, Quit: Aug 03, 2017 Recent Hopitalizations: Yes (Jul for AAA repair) Seasonal Allergies Seasonal Allergies: No Past Medical History Surgeries: Yes (AAA repair with stent placement in 2017) Abdominal Respiratory: No Cardiac: Yes Neurological: No Genitourinary: Yes (Chronic renal insufficiency) Gastrointestinal: No Musculoskeletal: No Endocrine: No HEENT: No Cancer: No Psychosocial: No Integumentary: No Blood Disorders: No Adverse Reaction/Blood Tranf: No Physical Exam Vital Signs Vital Signs - First Documented 03/30/20 03/30/20 13:00 14:09 Temp 33.3 Pulse 104 Resp 18 B/P (MAP) 77/53 (61) Pulse Ox 96 O2 Delivery Nasal Cannula O2 Flow Rate 4.00 FiO2 60 Capillary Refill : Height, Weight, BMI Height: 5'7.00" Weight: 139lbs. 6.4oz. 63.208208sy; 24.91 BMI Method:Stated General Appearance: Severe Distress, Thin, Other (Pallor) Eyes: Bilateral Eye Normal Inspection, Bilateral Eye PERRL, Bilateral Eye EOMI HEENT: PERRL/EOMI Respiratory: Lungs Clear, Normal Breath Sounds Cardiovascular: Regular Rate, Rhythm, No Murmur, Tachycardia Gastrointestinal: Other (Tender abdomen, pulsatile abdominal mass noted in the left lower quadrant and left midabdomen; hypoactive bowel sounds) Extremity: Normal Inspection, Normal Range of Motion, Slow Capillary Refill Neurologic/Psychiatric: Alert Procedures/Interventions Date of ETT Placement: Mar 30, 2020 Time of ETT Placement: 1345 Tube Size: 7.50 Progress/Results/Core Measures Suspected Sepsis SIRS Temperature: Pulse: 112 Respiratory Rate: 20 Blood Pressure 102 /74 Mean: Results/Orders Lab Results My Orders Vital Signs/I&O Capillary Refill : Progress Note : Time: 18:08 Progress Note Patient was presented to the emergency department and extremis, suspected ruptured AAA. After emergently being taken to CAT scan and fluid and blood resu scitated, pressor started the family was spoken with. His son elected to withdraw care. He has his power of patent prosecution attorney. Patient was extubated in the emergency department. at 1520. Last rights were given by the clergy. Critical Care Note Critical Care Start Time: 13:00 Stop Time: 14:30 Total Time (minutes) 60 minutes of critical care time including the evaluation and management of this patient with a ruptured AAA. Critical care time includes resuscitative measures including blood transfusions fluid resuscitation, review of the medical record, interpretation of imaging studies, discussion with transferring facilities, management of hypotension, discussion with family members at the bedside Date of : Mar 30, 2020 Time of : 15:20 Departure Impression Primary Impression: Ruptured abdominal aortic aneurysm Disposition: 20 Condition: Departure-Patient Inst. Referrals: YUE HUFF DO (PCP/Family) Primary Care Physician Copy Copies To 1: YUE HUFF KATHRYN M MD Mar 30, 2020 14:18
[2020-03-30] MEDS ORDERED: CALCIUM GLUC. 10% 4.65 MEQ/10 ML VIAL ONE (14:22)
--- NOTE | 2020-03-30 14:22 | Diagnostic Imaging Report ---
HISTORY: Abdominal pain. Intubation COMPARISON: 09/29/2017 TECHNIQUE: Frontal view chest FINDINGS: The endotracheal tube is 3 cm above the marty, directed toward the right wall. Lung volumes are normal. No focal consolidation is seen. There is no pleural effusion or pneumothorax. The cardiac silhouette is normal in size. The enteric tube tip projects over the stomach. A vascular stent is partially seen in the abdomen. IMPRESSION: 1. The endotracheal tube is 3 cm above the marty, directed toward the right wall. The enteric tube projects over the stomach. 2. No acute pulmonary abnormality seen. Dictated by: Dictated on workstation # [id number]
--- NOTE | 2020-03-30 14:28 | Diagnostic Imaging Report ---
PROCEDURE: CT chest, abdomen, and pelvis without contrast. TECHNIQUE: Multiple contiguous axial images were obtained through the chest, abdomen, and pelvis without the use of intravenous contrast. Auto Exposure Controls were utilized during the CT exam to meet ALARA standards for radiation dose reduction. INDICATION: Abdominal pain. Abdominal aortic aneurysm. Comparison is made with a prior CT abdomen and pelvis from January 142019. FINDINGS: The patient is status post a previous endovascular stent graft repair of a prior abdominal aortic aneurysm. This stent graft device remains present and does not appear changed in position. There has however now been development of a large right sided retroperitoneal hematoma which obscures the lateral margins of the excluded aneurysm sac. The maximum axial dimensions of this hematoma measures up to 14.5 x 6.0 cm with craniocaudal extent of up to [address], the favored consideration would still be that of abdominal aortic aneurysm rupture despite the presence of a stent graft. This could relate to a graft endoleak. Assessment for active extravasation cannot be performed on this noncontrast exam. The abdominal aorta was previously tortuous. There does appear to be an interval increase in size of the excluded aneurysm sac. At maximum degree of tortuosity, this portion of the aneurysm measures approximate 5.5 cm in diameter now measures approximately 6.2. The lungs demonstrate no focal infiltrate or consolidation. There is some minimal basilar atelectasis. There is no suspicious pulmonary nodule or mass. There is no pathologic thoracic adenopathy. There are atherosclerotic calcifications within the thoracic aorta and coronary vessels. There is no intramural hematoma. The liver demonstrates no evidence of focal abnormality. There are gallstones within the gallbladder. There is no biliary dilatation. The spleen is normal in size. The pancreas is atrophic. There is no adrenal mass. Kidneys are atrophic with a small left renal cyst. There are no findings of hydronephrosis or urolithiasis There is no evidence of bowel obstruction. There is no free air. IMPRESSION: 1. There are large hyperdense retroperitoneal hematoma. At this location, the favored consideration but noncontrast CT is that of an abdominal aortic aneurysm rupture, despite the presence of an indwelling endovascular stent graft. Compared to prior examination, the maximum transverse dimension of the excluded aneurysm sac the degree of maximal tortuosity of the abdominal aorta does appear to have increased in size. 2. No findings of bowel obstruction or free air 3. Cholelithiasis 4. No acute process evident within the chest Findings of suspected abdominal aortic aneurysm rupture and retroperitoneal hematoma were called to the [place] emergency department prior to this dictation. Dictated by: Dictated on workstation # [id number]
[2020-03-30] MEDS ORDERED: morphine INJ 10 MG/ML 1ML (SYR OR VIAL) ONE (15:14)
--- NOTE | 2020-03-30 15:20 | NUR ---
1405 [employer] arrives. Pt report given to THAO Zamora et David RN 1407 Norepinephrine increased (0.15mcg/kg/hr) 1408 NS bolus initiated 1416 Unit #3 initiated via rapid infusion 1422 Unit #3 complete 1423 Unit #4 initiated via rapid infusion 1434 Unit #4 complete 1440 DPOA (son) Alexandra Malik arrives. Dr. Scanlon visiting with Alexandra Malik who reports no further live saving measures to be taken 1445 Request for otr van cdl truck driver services et last right 1500 3mg versed iv push 1520 Time of
[2020-03-30] MEDS ORDERED: morphine INJ 10 MG/ML 1ML (SYR OR VIAL) IVP STA (15:49)
--- NOTE | 2020-03-30 15:56 | NUR ---
Contacted Angie wetzel et spoke with Rosina regarding need for services. ([phone])
[2020-03-30] MEDS ORDERED: CALCIUM GLUC. 10% 4.65 MEQ/10 ML VIAL IV ONE (16:00)
[2020-03-30] MEDS ORDERED: NS IV 1000 ML 2,000 ML ONE (23:44)
== END 2020-03-30 17:00 | disposition expired ==
LOC: ER 12:58 → EDUNIT# 12:58 → ER 17:00
DX: I71.3 Abdominal aortic aneurysm, ruptured (principal); Z87.891 Personal history of nicotine dependence
CPT/HCPCS: 71045; 71250; 74176; 80053; 82553; 82805; 83690; 84484; 85007; 85027; 86850; 86900; 86901; 86920; 93005; 94002; 94799; 99285; P9016; 36415